=== PATIENT | female | born 1990 | race Caucasian/White ===

== ENCOUNTER 2023-10-21 13:34 | Emergency (ER) | payer OTHER, SELFPAY ==
[2023-10-21 13:41] VITALS: BP 127/88
[2023-10-21 14:02] LABS: % Basophils 0.5 % (0-2); % Eosinophils 0.7 % (0-6); % Immature Granulocytes 0.2 % (0-0.5); % Lymphocytes 27.5 % (20.5-51.1); % Monocytes 6.2 % (1.7-9.3); % Neutrophils 64.9 % (42.2-75.2); Absolute Basophils 0.1 10^3/uL (0-0.2); Absolute Eosinophils 0.1 10^3/uL (0-0.7); Absolute Lymphocytes 2.9 10^3/uL (1.2-3.4); Absolute Monocytes 0.7 10^3/uL (0.1-0.6); Absolute Neutrophils 6.8 10^3/uL (1.4-6.5); Hematocrit 36.9 % (37.0-47.0); Hemoglobin 12.5 g/dL (12.0-16.0); Mean Corp Hgb Conc. 33.9 g/dL (33.0-37.0); Mean Corpuscular Hgb 30.7 pg (27.0-31.0); Mean Corpuscular Volume 90.7 fL (81.0-99.0); Nucleated Red Blood Cells % 0 %; Platelet Count 263 10^3/uL (130-400); Red Blood Cell Count 4.07 10^6/uL (4.20-5.40); Red Cell Dist. Width 11.6 % (11.5-14.5); White Blood Cell Count 10.5 10^3/uL (4.8-10.8)
[2023-10-21 14:20] LABS: ALT (SGPT) 15 U/L (0-35); AST (SGOT) 20 U/L (14-36); Albumin 4.4 g/dl (3.5-5.0); Alkaline Phosphatase 84 U/L (38-126); Blood Urea Nitrogen 10 mg/dl (7-17); Calcium 9.3 mg/dl (8.4-10.2); Carbon Dioxide 23 mmol/L (22-30); Chloride 107 mmol/L (98-107); Glucose 93 mg/dl (70-99); Potassium 3.8 mmol/L (3.5-5.1); Sodium 135 mmol/L (135-145); Total Bilirubin 0.3 mg/dl (0.2-1.3); Total Protein 6.9 g/dl (6.3-8.2); eGFR > 60.00
[2023-10-21 14:22] LABS: HCG, Serum Qualitative Screen Positive
[2023-10-21 15:35] LABS: Beta HCG Quantitative 28.19 mIU/ml
--- NOTE | 2023-10-21 18:39 | ED.GENMED ---
History of Present Illness
General
Chief Complaint: Back Pain
Source: patient
Exam Limitations: none
Time Seen by Provider: 10/21/23 17:20
Nursing documentation reviewed up to this point in time: agreed with
Travel History
Have you had any contact with someone who has COVID-19?: No
Do you have any symptoms of coronavirus? Fever > 100 degrees, chills, cough, shortness of breath, sore throat, loss of taste or smell, muscle aches, or headache?: No
History of Present Illness
History of Present Illness:
pt is a 33 y/o F with h/o POTS
sasy 2 weeks ago she got bad pelvic pain
she felt sore in her hips as well
she also had some dysuria and pain with urination
she was sleeping with ice packs on her abdomen
then the pelvic pain semi-resolved and she started feeling numbness her hips and lower back an dperineum and now into her thighs over the past week
she says when she wipes she doesn't really feel it
she is continnent, but feels like she is constipated and has been urinating less
she works at a [employer] office and she was reocmmended to come here for evaluation
pt also has some reported tingling in her right arm
she has no headache, neck pain, weakness in the arms or legs, incontinence, fever, chills, ivda
pt's lmp was apparently 3 weeks ago
she has not had any vaginal bleeding or discharge
Past History
Past History
ED Past Medical History: Other (Dysautonomia)
ED Past Surgical History: None
Social History
Tobacco: Smoker
Alcohol: None
Personal: Single
Living: with family
Employment: Employed
Review of Systems
Review of Systems
Allergies reviewed?: Yes
All Other Systems: Not applicable
Phy Exam
Physical Exam
Physical Exam:
GENERAL: Alert , in no apparent distress, comfortable at rest
HEAD: NCAT
NECK: no midline tenderness, active ROM intact, no paraspinal muscle tenderness;
CARDIAC: Regular rate and rhythm, no edema
LUNGS: Clear breath sounds bilaterally, no acute respiratory distress, no wheezes/rales/rhonchi
ABDOMEN: Soft, without focal tenderness, no r/g, no cvat, normal bowel sounds, nondistended
RECTAL: NORMAL TONE, NORMAL PERINEAL SENSATION, NO SKIN CHNAGES
NEUROLOGICAL: Alert and oriented, no focal neuro deficits, CN intact, 5/5 strength, sensation intact to light touch arms and legs and perineum
2+ brachial and patellar reflexes;
SKIN: Warm and dry,
MUSCULOSKELETAL: FULL ROM OF HIPS AND PELVIS
Back: No midline tenderness,full rom intact
negative straight leg raise Bilaterally
PSYCH: Normal and appropriate interaction.
Course
Orders/Labs/Results
Orders:
Orders
10/21/23 13:45
Test Result ONCE
10/21/23 13:48
Beta HCG Quantitative Urgent
CBC/With Diff [Complete Blood Count/With Diff] Urgent
CMP [Comprehensive Metabolic Panel] Urgent
HCG, Serum Qualitative Screen Urgent
10/21/23 14:24
Add On- LAB Urgent
Tests Added?: serum beta quant
10/21/23 18:24
Bladder US [US Urinary Bladder Only] Urgent
Comment:
Reason For Exam: post void residual
10/21/23 18:25
US W Transvaginal Urgent
Reason For Exam: pelvic pain, pos preg
10/21/23 20:00
Urinalysis Reflex To Culture Urgent
Date Specimen was Collected: 10/21/23
Time Specimen was Collected: 19:51
Urine Microscopic Reflex Cult Urgent
Abnormal Lab Results
10/21/23 10/21/23
13:48 20:00
RBC 4.07 L 10^6/uL
(4.20-5.40)
Hct 36.9 L %
(37.0-47.0)
Absolute Neuts (auto) 6.8 H 10^3/uL
(1.4-6.5)
Absolute Monos (auto) 0.7 H 10^3/uL
(0.1-0.6)
Creatinine 0.5 L mg/dL
(0.6-1.0)
Urine Ketones Trace A
(Negative)
Leukocyte Esterase Rfl Trace A
(Negative)
10/21/23 13:48
10/21/23 13:48
Vital Signs
Initial and Last Documented VS:
Initial Vital Signs
Temp Pulse Resp BP Pulse Ox
98 F 105 16 127/88 99
10/21/23 13:41 10/21/23 13:41 10/21/23 13:41 10/21/23 13:41 10/21/23 13:41
Last Documented Vital Signs
Temp Pulse Resp BP Pulse Ox
98.8 F 86 16 117/78 99
10/21/23 21:03 10/21/23 21:03 10/21/23 21:03 10/21/23 21:03 10/21/23 21:03
MDM/Problems Addressed
Differential Diagnosis Includes:
spinal stenosis, radiculopathy, less likely cuadua equina, and not likely GBS
MDM/Problems Addressed:
33 y/o F with POTS
here with low back pain no trauma for weeks and feels numbness in her rectum and into her legs
she also thinks she is urinating less
no weaness, no intoncinence
pt apparently was unaware she was , she had positive preg test which was probably not related to sypmtoms
but regardless warranted an evlauation beause of her lower back shahriar
she had no vaginal symptoms
normal rectal tone, normal strength and normal reflexes make it very unlikely to be cauda equina and GBS
bladder scan normal, normal PVR
d/w jeff ttending who agreed with discharge home
f/u ob because beta is too low and us does not show IUP which is likely c/w early
*Critical Care Note
Total Time (30-74mins, 75-104mins- exclusive of procedures): Not Applicable
ED Attending Note
-
Portions of this chart may have been created with voice recognition software.� Occasional wrong word or��sound alike� substitutions may have occurred due to the inherent limitations of voice recognition software.
Discharge Plan
Departure
Patient Disposition: Home (Routine Discharge)
Date of Disposition: 10/21/23
Time of Disposition: 21:02
Patient with high blood pressure during this ER visit?: No
Condition: Fair
Covid-19: Not Applicable
Discharge Problem:
Positive test, Back pain, Paresthesias
Instructions: Low Back Pain (DC), Abdominal Trauma in (DC)
Prescriptions:
No Action
prednisone 10 MG tablet
40 mg PO DAILY
Patient Comments:
2/[address]
ibuprofen 800 MG tablet
800 mg PO ONCE
famotidine 40 MG tablet
40 mg PO HS
bupropion HCl [Wellbutrin] 100 MG tablet
150 mg PO DAILY
cyclobenzaprine 10 MG tablet
10 mg PO BIDPRN PRN (Reason: muscle tightness/spasm) Qty: 20 0RF
ondansetron 4 MG tablet,disintegrating
4 mg PO TIDPRN PRN (Reason: nausea) Qty: 12 0RF
Referrals:
Michael Sharp DO [Family Provider] - Follow up in 2-3 days
Carrie Shah MD [Active] - Follow up in 2-3 days
Activity Restrictions/Additional Instructions:
WE ARE NOT SURE THE CAUSE OF YOUR BACK PAIN SYMPTOMS
YOU HAD NO SIGNS OF SPINAL CORD EMERGENCY OR URGENT NEUROLOGIC CONDITION -
YOU SHOULD FOLLOW UP WITH YOUR FAMILY DOCTOR - YOU MAY NEED AN MRI OF YOUR BACK
BUT IN THE MEANTIME, YOU HAD NO SIGNS OF URINE INFECTION
YOUR TEST IS VERY EARLY POSITIVE
YOU NEED TO HAVE YOUR BETA HORMONE LEVEL REPEATED ON TUESDAY - THIS HAS TO BE DONE - YOU NEED TO CALL YOUR OB/GYNE TO GET THIS REPEATED
THEY NEED TO TREND THE LEVEL TO MAKE SURE YOU DO NOT HAVE AN ECTOPIC
IF YOU HAVE PAIN, BLEEDING, OR ANY CONCERNS, OR CANNOT GET THIS LEVEL REPEATED AN OUTPATIENT, COME TO THE ER
RETURN FOR ANY OTHER CONCERNS LIKE INCONTINENCE, LEG WEAKNESS, WORSENING NUMBNESS
Interventions
Interventions:
*Risk Screen - Suicide Last Done: 10/21/23 16:12
*General Assessment Last Done: 10/21/23 16:12
*Neglect/Abuse Screening Last Done: 10/21/23 16:12
ED- Fall Risk Assessment Last Done: 10/21/23 16:12
*ED COVID-19 Vaccine History Last Done: 10/21/23 16:12
*Nursing Disposition Last Done: 10/21/23 21:19
ED-Musculoskeletal Assessment Last Done: 10/21/23 16:12
Discharge Date and Time
Discharge Date/Time: 10/21/23 21:19
[2023-10-21 20:10] LABS: Urine Albumin Negative (Neg - Trace); Urine Bilirubin Negative (Negative); Urine Character Clear (Clear); Urine Color Yellow; Urine Glucose Negative (Negative); Urine Ketone Trace (Negative); Urine Leukocyte Trace (Negative); Urine Nitrite Negative (Negative); Urine Occult Blood Negative (Negative); Urine Urobilinogen Negative (Neg - 1+); Urine pH 6.5 (5.0-9.0)
[2023-10-21 20:26] LABS: Urine Squamous Cell 0-2 /LPF (Few)
[2023-10-21 20:27] LABS: Urine Red Blood Cell None Seen /HPF (0-2); Urine White Cell 0-2 /HPF (0-5)
[2023-10-21 21:03] VITALS: BP 117/78
== END 2023-10-21 21:19 | disposition home or self-care (01) ==
LOC: EMR 13:34
PROVIDERS: Emergency Medicine; Physician Assistant; EMERGENCY PHYSICIAN Emergency Medicine; FAMILY PHYSICIAN Family Medicine
DX: O99.891 Other specified diseases and conditions complicating pregnancy (principal); M54.9 Dorsalgia, unspecified; R20.2 Paresthesia of skin; R10.2 Pelvic and perineal pain; G90.A Postural orthostatic tachycardia syndrome [POTS]; G90.1 Familial dysautonomia [Riley-Day]; F17.200 Nicotine dependence, unspecified, uncomplicated; Z32.01 Encounter for pregnancy test, result positive
CPT/HCPCS: 99284; 76801; 76817; 76857; 80053; 81003; 81015; 84702; 84703; 85025